=== PATIENT | male | born 1990 | race American Indian/Alaskan Native ===

== ENCOUNTER 2020-07-31 13:04 | Emergency (ER) | payer SELFPAY ==
[2020-07-31 13:45] VITALS: BP 151/87
--- NOTE | 2020-07-31 13:48 | Event Note ---
ED Screening Note Date of service: 07/31/20 Time: 13:47 ED Screening Note: 30-year-old -[place] male presents to the emergency room complaining of facial swelling x3 to 4 days. Patient reports a history of kidney disease but is not on dialysis. States that he also has some swelling in his stomach. And reports difficulty in urinating which represents not able to go as much. This initial assessment/diagnostic orders/clinical plan/treatment(s) is/are subject to change based on patients health status, clinical progression and re- assessment by fellow clinical providers in the ED. Further treatment and workup at subsequent clinical providers discretion. Patient/guardian urged not to elope from the ED as their condition may be serious if not clinically assessed and managed. Initial orders include:
[2020-07-31 14:29] LABS: Basophils # (Auto) 0.1 K/mm3 (0.0-0.1); Basophils % (Auto) 0.8 % (0.0-1.8); Eosinophils # (Auto) 1.1 K/mm3 (0.0-0.4); Hematocrit 43.6 % (35.5-45.6); Hemoglobin 15.3 gm/dl (11.8-15.2); Lymphocytes % (Auto) 31.3 % (13.4-35.0); Mean Corpuscular HGB Conc 35 % (32-34); Mean Corpuscular Volume 96 fl (84-94); Monocytes # (Auto) 0.8 K/mm3 (0.0-0.8); Monocytes % (Auto) 8.6 % (0.0-7.3); Platelet Count 260 K/mm3 (140-440); Red Blood Count 4.55 M/mm3 (3.65-5.03); Red Cell Distribution Width 12.5 % (13.2-15.2)
[2020-07-31 14:50] LABS: Alanine Aminotransferase 14 units/L (7-56); Albumin 1.8 g/dL (3.9-5); BUN/Creatinine Ratio 21; Blood Urea Nitrogen 33 mg/dL (9-20); Calcium 7.9 mg/dL (8.4-10.2); Hemolysis Index 15
--- NOTE | 2020-07-31 15:24 | Emergency Department Report ---
ED General Adult HPI - General Chief complaint: Urogenital-Male Stated complaint: KIDNEY PAIN/SWELLING Time Seen by Provider: 07/31/20 15:00 Source: patient Mode of arrival: Ambulatory Limitations: No Limitations - History of Present Illness Initial comments: Patient is 30 years old male with history of hypertension and chronic kidney disease. Patient stated that he [place] in his kidney. Patient presented to the ER stating that he started to have generalized swelling for the last few days and this is similar when he has his episode before. Patient also stated that he started having some shortness of breath. Patient denied any fever or chills. - Related Data Allergies Allergy/AdvReac Type Severity Reaction Status Date / Time No Known Allergies Allergy Unverified 07/31/20 13:42 ED Review of Systems ROS: Stated complaint: KIDNEY PAIN/SWELLING Other details as noted in HPI Comment: All other systems reviewed and negative Constitutional: denies: chills, fever Respiratory: shortness of breath. denies: cough, SOB with exertion, SOB at rest, wheezing Cardiovascular: denies: chest pain Gastrointestinal: denies: abdominal pain, nausea, vomiting Musculoskeletal: denies: back pain Neurological: denies: headache, weakness, numbness, paresthesias, confusion, abnormal gait ED Past Medical Hx - Past Medical History Previous Medical History?: Yes Hx Hypertension: Yes Hx Renal Disease: Yes - Surgical History Past Surgical History?: Yes Additional Surgical History: hernia repair - Social History Smoking Status: Current Every Day Smoker Substance Use Type: None ED Physical Exam - General Limitations: No Limitations General appearance: alert, in no apparent distress - Head Head exam: Present: atraumatic, normocephalic, normal inspection - Eye Eye exam: Present: periorbital swelling - ENT ENT exam: Present: normal exam, normal orophraynx, mucous membranes moist - Neck Neck exam: Present: normal inspection, full ROM. Absent: tenderness, meningismus - Respiratory Respiratory exam: Present: normal lung sounds bilaterally - Cardiovascular Cardiovascular Exam: Present: regular rate, normal rhythm, normal heart sounds - GI/Abdominal GI/Abdominal exam: Present: soft, normal bowel sounds. Absent: distended, tenderness, guarding, rebound, rigid, organomegaly, mass, bruit, pulsatile mass, hernia - Extremities Exam Extremities exam: Present: normal inspection, full ROM, normal capillary refill - Back Exam Back exam: Present: normal inspection, full ROM. Absent: CVA tenderness (R), CVA tenderness (L) - Neurological Exam Neurological exam: Present: alert, oriented X3, CN II-XII intact - Psychiatric Psychiatric exam: Present: normal mood - Skin Skin exam: Present: warm, intact, normal color ED Course Vital Signs 07/31/20 13:42 Temperature 97.9 F Pulse Rate 72 Respiratory 18 Rate Blood Pressure 151/87 O2 Sat by Pulse 96 Oximetry ED Medical Decision Making - Lab Data Result diagrams: 07/31/20 14:15 07/31/20 14:15 - Radiology Data Radiology results: report reviewed - Medical Decision Making Patient is 30 years old male with history of hypertension and chronic kidney disease. Patient stated that he was [place] that [place] holes in his kidney. Patient presented to the ER stating that he started to have generalized swelling for the last few days and this is si milar when he has his episode before. Patient also stated that he started having some shortness of breath. Patient denied any fever or chills. Labs reviewed and showed elevated creatinine of 1.6. Patient most likely talking about either nephrotic syndrome or nephritic syndrome. I discussed the patient with Dr. Baker, account manager education on-call. He advised to start patient on Lasix 20 mg daily and start patient on Norvasc 5 mg daily and patient to call his office tomorrow for an appointment. Advised the patient to return to the ER if he develop any new symptoms. Critical care attestation.: If time is entered above; I have spent that time in minutes in the direct care of this critically ill patient, excluding procedure time. ED Disposition Clinical Impression: Swelling around both eyes, Abdominal swelling, generalized, Chronic kidney disease, Hypertension Disposition: - TO HOME OR SELFCARE Is pt being admited?: No Condition: Stable Instructions: Hypertension (ED), Chronic Kidney Disease, Adult, [id number], H ypertension, Adult Referrals: PRIMARY CARE, [Primary Care Provider] - 3-5 Days AGUSTÍN BAKER MD [Staff Physician] - 3-5 Days
[2020-07-31 15:40] LABS: Bilirubin,Urine NEG (Negative); Blood,Urine SM (Negative); Color,Urine Yellow (Yellow); Mucus,Urine FEW /HPF; Urobilinogen,Urine < 2.0 mg/dL (<2.0)
[2020-07-31 15:43] LABS: Protein,Urine >500 mg/dL (Negative)
--- NOTE | 2020-07-31 16:17 | XRay Report ---
CHEST 2 VIEWS INDICATION: SOB. COMPARISON: None FINDINGS: Support devices: None. Heart: Within normal limits. Lungs/pleura: No acute air space or interstitial disease. No pneumothorax. Additional findings: None. IMPRESSION: No acute findings. Signer Name: Meño Ramesh Jr, MD Signed: 07/31/2020 4:12 PM Workstation Name: [id number]
== END 2020-07-31 18:01 | disposition home or self-care (01) ==
LOC: ED 13:04
DX: I12.9 Hypertensive chronic kidney disease with stage 1 through stage 4 chronic kidney disease, or unspecified chronic kidney disease (principal); G40.909 Epilepsy, unspecified, not intractable, without status epilepticus; F17.200 Nicotine dependence, unspecified, uncomplicated
CPT/HCPCS: 36415; 71046; 80053; 81001; 82140; 85025; 87086